=== PATIENT | female | born 1980 | race Caucasian/White ===

== ENCOUNTER 2020-10-14 17:04 | Emergency (ER) | payer OTHER, SELFPAY ==
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
[2020-10-14 17:10] VITALS: BP 120/83; PULSE 93; RESP 15; TEMP 37; O2SAT 96
[2020-10-14] MEDS: LIDOCAINE HCL 1% LOCAL INJ 20 ML VIAL 10 ML INFILTRATE (17:27)
[2020-10-14 18:43] VITALS: RESP 16
== END 2020-10-14 18:45 | disposition home or self-care (01) ==
PROVIDERS: Emergency Provider Emergency Medicine; PCP Family Medicine
DX: S51.811A Laceration without foreign body of right forearm, initial encounter (principal); S60.511A Abrasion of right hand, initial encounter; W25.XXXA Contact with sharp glass, initial encounter
CPT/HCPCS: 12002; 99282

== ENCOUNTER 2022-06-20 16:50 | Emergency (ER) | payer OTHER, SELFPAY ==
[2022-06-20 16:50] VITALS: BP 144/99; PULSE 74; RESP 16; TEMP 36.4; O2SAT 100
--- NOTE | 2022-06-20 16:57 | ED.HA ---
HPI - Headache General Chief Complaint: Headache Stated Complaint: headache Time Seen by Provider: 06/20/22 16:56 Source: patient and RN notes reviewed Mode of arrival: ambulatory Limitations: no limitations History of Present Illness MD elicited complaint: migraine Pertinent past history: migraines Onset (ago): hour(s) (7) Onset description: suddenly Location: right, frontal, temporal and parietal Severity: similar to previous episodes ( Worse than usual) Quality & Timing: aching, throbbing and constant Exacerbating factors: light and noise Relieving factors: nothing Context: occurred at rest Associated symptoms: nausea, photophobia and sensitivity to sound Related Data Home Medications Medication Instructions Recorded Confirmed No Home Medications 06/20/22 06/20/22 Allergies Allergy/AdvReac Type Severity Reaction Status Date / Time No Known Allergies Allergy Verified 03/10/22 12:59 Review of Systems Review of Systems: All systems reviewed & are unremarkable except as noted in HPI and below Neurologic: Reports system reviewed and no additional complaints, except as documented, Denies confusion, Denies dizziness, Denies syncope, Denies focal weakness and Denies numbness PMFSH Past Medical History Medical History (Updated 06/20/22 @ 17:12 by Meir Cevallos MD) Anxiety PTSD (post-traumatic stress disorder) Surgical History Surgical History H/O tubal ligation Social History Social History (System 03/10/22 @ 12:59 by Lavon Douglass) Living arrangements: with family Exam Const: General: healthy appearing, no acute distress and alert Nutritional Appearance: well nourished Orientation/consciousness: patient oriented x3 Limitations: no limitations Other: female tech in room during examination. HENMT: Head: normal to inspection Ears: external ears normal and TM's normal bilaterally Face/Nose/Sinus: Normal external nose present and Normal nares present Face and sinus: normal facial exam Mouth: Yes moist mucous membranes abnormal Throat: posterior oropharynx normal Eyes: Conjunctivae: conjunctivae normal Pupils: Equal, round and reactive pupils present EOM: EOMs intact bilaterally Direct Ophthalmoscopy: photophobia Neck: Neck: normal visual inspection and no meningeal signs Resp: Effort & Inspection: normal respiratory effort Auscultation: clear to auscultation bilaterally Cardio: Rate: regular rate Rhythm: regular rhythm GI: GI Palp: Yes Soft to palpation and No Tenderness to palpation present (GI) Auscultation: normal bowel sounds Back/Spine/Pelvis: Cervical Spine: cervical ROM normal Thoracic/Lumbar Spine: thoraco-lumbar ROM normal Skin: General skin exam: normal color Rashes: no rashes Neuro: General: patient oriented x3, moves all extremities, no focal motor deficits and CN's II-XI intact bilaterally Speech: normal speech Gait exam (Neuro): Normal gait present Extrem: General: normal to inspection and no clubbing, cyanosis or edema Psych: Mental Status: mental status grossly normal Affect: normal affect Attitude: cooperative MDM - Headache Differential Diagnosis Differential diagnosis: Likely migraine, tension headache and headache Discharge Plan Discharge Clinical Impression: Migraine Qualifiers: Migraine type: without aura Status migrainosus presence: without status migrainosus Intractability: not intractable Qualified Code(s): G43.009 - Migraine without aura, not intractable, without status migrainosus Patient Disposition: Home, Self-Care Condition: Stable Instructions: Migraine Headache (ED) Additional Instructions: Home rest in a quiet dark room. Consider taking 50 mg of Benadryl to help you sleep. Prescriptions: No Action No Home Medications Follow-up/Referrals: Axel Garrison M.D. [Primary Care Provider] - Time of Disposition: 17:29
[2022-06-20] MEDS: METOCLOPRAMIDE HCL INJ 10 MG/2 ML VIAL IV PUSH (17:18)
[2022-06-20] MEDS: KETOROLAC 30 MG/ML VIAL (*BKC) IV PUSH (17:18)
== END 2022-06-20 17:35 | disposition home or self-care (01) ==
PROVIDERS: Emergency Provider Emergency Medicine; PCP Family Medicine
DX: G43.009 Migraine without aura, not intractable, without status migrainosus (principal)
CPT/HCPCS: 96374; 96375; 99284; J1885; J2765

== ENCOUNTER 2023-03-07 22:59 | Emergency (ER) | payer OTHER, SELFPAY ==
[2023-03-07 22:59] VITALS: BP 132/85; PULSE 97; RESP 18; TEMP 36.8; O2SAT 99
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
[2023-03-07 23:38] LABS: Strep Group A RT-PCR NOT DETECTED (Negative)
[2023-03-07 23:48] LABS: Influenza A QL RT-PCR Positive (Negative); Influenza B QL RT-PCR Negative (Negative); RSV RNA, RT-PCR Negative (Negative); SARS-CoV-2 RNA PCR Negative (Negative)
[2023-03-08 00:05] VITALS: BP 127/81; PULSE 90; RESP 18; TEMP 37.3; O2SAT 98
== END 2023-03-08 00:13 | disposition home or self-care (01) ==
PROVIDERS: Emergency Provider Emergency Medicine; PCP Family Medicine
DX: J10.1 Influenza due to other identified influenza virus with other respiratory manifestations (principal); Z20.822 Contact with and (suspected) exposure to COVID-19
CPT/HCPCS: 87637; 87651; 99283

== ENCOUNTER 2023-09-23 02:07 | Emergency (ER) | payer OTHER, SELFPAY ==
[2023-09-23 02:08] VITALS: BP 136/91; PULSE 80; RESP 18; TEMP 36; O2SAT 96
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
[2023-09-23] MEDS: PROCHLORPERAZINE EDISYLATE 10 MG/2 ML VIAL IM (02:24)
[2023-09-23] MEDS: KETOROLAC 30 MG/ML VIAL (*BKC) IM (02:24)
== END 2023-09-23 03:00 | disposition home or self-care (01) ==
PROVIDERS: Emergency Provider Internal Medicine Critical Care Medicine; PCP Family Medicine
DX: G43.909 Migraine, unspecified, not intractable, without status migrainosus (principal)
CPT/HCPCS: 96372; 99284; J0780; J1885